=== PATIENT | female | born 1960 | race Caucasian/White ===

== ENCOUNTER 2019-07-23 10:15 | Outpatient (RCR) | payer MEDICAID, OTHER, SELFPAY ==
--- NOTE | 2019-07-30 10:32 | PTOPEVAL ---
Thank you for referring Josephine Dee to [facility]. Please review, sign, date and return this plan of care JOAN. I agree with and certify that the following plan of care is medically necessary. Referring Physician Date Admitting Provider: Attending Provider: PHYSICIAN NOT ON STAFF Referring Provider: *PT Outpatient Evaluation Start: 07/23/19 16:34 Freq: Status: Active Protocol: Document 07/23/19 16:30 [facility] (Rec: 07/23/19 16:52 [facility] [id number]) Therapy Assessment Status Assessment Status Assessment Status Evaluation Outpatient Past Medical History Past Medical History Other Source of Past Medical History see patient intake form Cardiovascular History Hx Hypertension Yes Musculoskeletal History Hx Other Musculoskeletal Disorders Yes: right foot surgery Reproductive History Hx Post Menopausal Yes Hx Tubal Ligation Yes Hx Other Reproductive Disorders Yes: right breast lumpectomy Evaluation Information Problem Diagnosis L knee post-op TKA Onset 07/07/19 Subjective Information patient reports she had a L Query Text:As Reported By Patient/ TKA on 07/07/19. she reports Family this surgery was done by Dr. Leigh. she reports she is having pain sometimes at night still. she reports she is not working currently. she reports she has limited her pain med use. she reports she does not have insurance coverage at this time, but is working to resolve this. Prior Level of Function Comments Additional Prior Level of Function prior to operation, she Comments reports she was able to walk and ambulate stairs. she reports she was having pain and symptoms in the knee with turning. she reports she was not using any ad prior to surgery. she reports she would limp ocassionally. she reports no ad any more. Pain Assessment Timing of Pain Assessment Timing of Pain Assessment Assessment Pain Scale Pain Scale Used Numeric (1 - 10) Self Report Pain Assessment Left Knee(s) Reported Pain Level 0 Pain Description Aching,Dull Pain Frequency Acute,Intermittent Lowest Pain Intensity 0 Greatest Pain Intensity 4 Pain Aggravating Factors Stair Climbing,Walking,Weight
== END 2019-09-01 08:09 | disposition home or self-care (01) ==
LOC: CHSPT 10:15
DX: Z96.652 Presence of left artificial knee joint (principal)
CPT/HCPCS: 97016; 97110; 97161; 97530

== ENCOUNTER 2020-03-21 12:31 | Outpatient (CLI) | payer OTHER, SELFPAY ==
--- NOTE | ~2020-03-21 | XR_ITS ---
XR shoulder RT min 2V 03/21/2020 12:54 Indication: Right shoulder pain Procedure: 4 views right shoulder Comparison: No prior studies for comparison. Findings: There are mild degenerative changes of the right shoulder. No fracture or traumatic malalig nment. Visualized lung parenchyma is unremarkable. No significant soft tissue abnormality. No radiopa que foreign bodies. Impression: 1: Mild polyarticular osteoarthritis of the right shoulder. Reviewed, dictated and finalized at location B. 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
== END 2020-03-21 12:32 | disposition home or self-care (01) ==
LOC: CHSIMG 12:34
PROVIDERS: PCP Physician Assistant; Visit Provider Physician Assistant
DX: M25.511 Pain in right shoulder (principal)
CPT/HCPCS: 73030

== ENCOUNTER 2020-03-24 08:58 | Outpatient (RCR) | payer OTHER, SELFPAY ==
--- NOTE | 2020-03-24 10:11 | PTOPEVAL ---
Thank you for referring Josephine Dee to [facility].? The patient is scheduled to be seen for therapy? ____x/week for ___ weeks. Please review, sign, date and return this plan of care JOAN. I agree with and certify that the following plan of care is medically necessary. Referring Physician Date Admitting Provider: Attending Provider: Kervin Neely, PA Referring Provider: *PT Outpatient Evaluation Start: 03/24/20 09:00 Freq: Status: Active Protocol: Document 03/24/20 09:05 [facility] (Rec: 03/24/20 10:02 [facility] [id number]) Therapy Assessment Status Assessment Status Assessment Status Evaluation Outpatient Past Medical History Cardiovascular History Hx Hypertension Yes Musculoskeletal History Hx Other Musculoskeletal Disorders Yes: right foot surgery Reproductive History Hx Post Menopausal Yes Hx Tubal Ligation Yes Hx Other Reproductive Disorders Yes: right breast lumpectomy Evaluation Information Problem Diagnosis R shoulder pain Onset 03/21/20 Additional Evaluation Detail quick dash = 54% Subjective Information patient reports she has been Query Text:As Reported By Patient/ having pain in the R shoulder Family for several months. she reports no injury. she reports the pain started solely in the R shoulder and has gradually started moving down into her arm and the UT. she reports she has been off work since 02/24/20. she reports pain in the R shoulder that shoots down the arm when she is reaching for objects out away from her body. she reports lifting and carrying objects also increase pain. she reports her 10lb graddaughter is too heavy at times. 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 Prior Level of Function Comments Additional Prior Level of Function prior to summer time, no Comments issues with her shoulder. she reports she was off work until september of this year and then went back and began having pain increased when she went back to work. Pain Assessment Timing of Pain Assessment Timing of Pain Assessment Assessment Pain Scale Pain Scale Used Numeric (1 - 10) Self Report Pain A
--- NOTE | 2020-07-12 07:19 | PCPTNOTE ---
07/12/20 - patient account DC. patient has returned as a new patient under a new order with an updated account. all progress towards goals from this account will be taken from her most recent evaluation/note. NANCY
== END 2020-05-03 18:00 | disposition home or self-care (01) ==
LOC: CHSPT 08:58
PROVIDERS: PCP Physician Assistant; Visit Provider Physician Assistant
DX: M25.511 Pain in right shoulder (principal)
CPT/HCPCS: 97014; 97110; 97161; G0283

== ENCOUNTER 2020-05-31 15:40 | Outpatient (CLI) | payer OTHER, SELFPAY ==
--- NOTE | ~2020-05-31 | MM_ITS ---
EXAMINATION: MM screening pam BI w tomeka HISTORY: Screening mammogram TECHNIQUE: Craniocaudal and mediolateral oblique 3-D tomosynthesis images were obtained and synthetic 2-D images were generated. CAD analysis was submitted and interpreted. COMPARISON: 05/16/2019, 04/19/2018, 03/23/2017 bilateral digital screening mammogram examinations BREAST PARENCHYMAL COMPOSITION: The breasts are almost entirely fatty. FINDINGS: There is no evidence of suspicious mass, calcification, or architectural distortion to sugg est malignancy in either breast. There has been no suspicious interval change. IMPRESSION: 1. No mammographic evidence of malignancy. 2. Recommend routine screening mammography in one year. BI-RADS Category 1: Negative Reviewed, dictated and finalized at location A. 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
== END 2020-05-31 15:41 | disposition home or self-care (01) ==
LOC: ANHIMG 15:42
PROVIDERS: Family Provider Family Medicine; PCP Physician Assistant; Visit Provider Obstetrics & Gynecology
DX: Z12.31 Encounter for screening mammogram for malignant neoplasm of breast (principal)
CPT/HCPCS: 77063; 77067

== ENCOUNTER 2020-06-23 10:53 | Outpatient (RCR) | payer OTHER, SELFPAY ==
--- NOTE | 2020-06-23 12:38 | PTOPEVAL ---
Thank you for referring Josephine Dee to [facility].? The patient is scheduled to be seen for therapy? ___2_x/week for 10 visits. Please review, sign, date and return this plan of care JOAN. I agree with and certify that the following plan of care is medically necessary. Referring Physician Date Admitting Provider: Attending Provider: SEBASTIÁN ISAAC Referring Provider: *PT Outpatient Evaluation Start: 06/23/20 11:10 Freq: Status: Active Protocol: Document 06/23/20 11:10 [facility] (Rec: 06/23/20 12:37 [facility] [email or web address]) Therapy Assessment Status Assessment Status Assessment Status Evaluation Outpatient Past Medical History Cardiovascular History Hx Hypertension Yes Musculoskeletal History Hx Other Musculoskeletal Disorders Yes: right foot surgery Reproductive History Hx Post Menopausal Yes Hx Tubal Ligation Yes Hx Other Reproductive Disorders Yes: right breast lumpectomy Evaluation Information Problem Diagnosis right AC resection/anterior acromioplasty Onset 06/21/20 Subjective Information Pt. reports she underwent Query Text:As Reported By Patient/ surgery 2 days ago. She is Family currently in a sling. Pt. reports that she is having pain with movement. 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 She states that her goal is to regain normal shoulder movement. 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 reports she is currently Comments requiring assist from her with dressing and grooming. Pain Assessment Timing of Pain Assessment Timing of Pain Assessment Pre-Treatment Pain Scale Pain Scale Used Numeric (1 - 10) Self Report Pain Assessment Right Shoulder(s) Reported Pain Level 9 Pain Description Aching Pain Score Pain Score 9: Self Report Interventions Used Interventions Used By Clinicians Exercise,Ice Upper Extremity
== END 2020-07-20 18:10 | disposition home or self-care (01) ==
LOC: CHSPT 10:53
DX: M75.41 Impingement syndrome of right shoulder (principal)
CPT/HCPCS: 97014; 97110; 97161; G0283

== ENCOUNTER 2021-06-13 11:44 | Outpatient (CLI) | payer OTHER, SELFPAY ==
--- NOTE | ~2021-06-13 | MMUS_ITS ---
EXAMINATION: MM diagnostic pam BI w tomeka, US axilla RT HISTORY: Axillary tail breast lump on right TECHNIQUE: ML, MLO and CC 3-D tomosynthesis images of both breasts were performed and synthetic 2-D i mages were generated. CAD analysis was submitted and interpreted. High resolution targeted right axil miguel breast ultrasound was performed. COMPARISON: May 31, 2020, May 16, 2019, April 19, 2018 bilateral screening mammogram exami nations BREAST PARENCHYMAL COMPOSITION: The breasts are almost entirely fatty. FINDINGS: MAMMOGRAPHIC FINDINGS: No suspicious mass or architectural distortion, malignant calcification, skin thickening or retractio n or significant new or developing density is detected. ULTRASOUND: No suspicious mass or shadowing is detected in the area of clinical complaint in the right axillary a carrie. IMPRESSION: 1. No mammographic evidence of malignancy 2. Routine annual mammographic screening is recommended BI-RADS Category 1: Negative Reviewed, dictated and finalized at location A. 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 No mammographic evidence of malignancy 2. Routine annual mammographic screening is recommended BI-RADS Category 1: Negative
== END 2021-06-13 11:45 | disposition home or self-care (01) ==
LOC: ANHIMG 11:45
PROVIDERS: Visit Provider Physician Assistant
DX: N63.31 Unspecified lump in axillary tail of the right breast (principal)
CPT/HCPCS: 76882; 77062; 77066; G0279

== ENCOUNTER 2021-11-08 09:45 | Outpatient (CLI) | payer OTHER, SELFPAY ==
--- NOTE | ~2021-11-08 | DEXA_ITS ---
Bone Density Report Name: ALEJANDRO MURRY Age: 61 Sex: Female Ethnicity: White Date of : 1960 Indication: monitoring treatment; height loss; postmenopausal Referring Provider: HARRY GONZALEZ Study: Bone densitometry was performed. Exam Date: November 08, 2021 Accession number: [id number] Bone Density: Region BMD T-score Z-score Classification AP Spine(L2, L3) 1.273 2.0 3.5 Normal Femoral Neck (Left) 0.799 -0.5 0.9 Normal Total Hip (Left) 1.046 0.9 1.9 Normal Femoral Neck (Right) 0.725 -1.1 0.2 Osteopenia Total Hip (Right) 1.077 1.1 2.1 Normal Total Hip Mean 1.062 1.0 2.0 Normal World Health Organization criteria for BMD impression classify patients as: Normal (T-score at or above -1.0), Osteopenia (T-score between -1.0 and -2.5), or Osteoporosis (T-score at or below -2.5). 10-year Fracture Risk: FRAX not reported because: Treated for osteoporosis Previous Exams: Region Exam Age BMD T-score BMD Change BMD Change Date g/cm2 vs Baseline vs Previous AP Spine (L2-L3) 11/08/2021 61 1.273 2.0 0.129 (11.3%)* 0.129 (11.3%)* 03/03/2016 55 1.144 0.8 Total Hip(Left) 11/08/2021 61 1.046 0.9 0.014 (1.3%) -0.010 (-0.9%) 04/19/2018 57 1.056 0.9 0.023 (2.3%) 0.023 (2.3%) 03/03/2016 55 1.032 0.7 Total Hip(Right) 11/08/2021 61 1.077 1.1 0.000 (0.0%) 0.032 (3.1%)* 04/19/2018 57 1.045 0.8 -0.032 (-3.0%) -0.032 (-3.0%) 03/03/2016 55 1.077 1.1 *Denotes significance at 95% confidence level, LSC for AP Spine = 0.022 g/cm2, LSC for Total Hip = 0.027 g/cm2 Clinical Information Provided by Patient: Is being treated for osteoporosis Has used the following medications: Vitamin D, Calcium Patient maximum height was 64 Menopause Age: 51 Drinks caffeinated beverages Onset of menses at age 10 Number of children 2 Impression: The patient has low bone mass, based on the Right Femoral Neck T-score. No significant bone loss was observed. Discussion: PATIENT UNDER TREATMENT WITH NO SIGNIFICANT BMD LOSS SINCE LAST EXAM. In an untreated patient, BMD typically declines with age. A lack of decline or gain is usually a sign that treatment is efficacious and fracture risk is reduced. It is important to ask patients whether they are taking their medications and to encourage continued and appropriate compliance with their osteoporosis therapies to reduce fracture risk. It is also important to review their risk factor
== END 2021-11-08 09:46 | disposition home or self-care (01) ==
LOC: ANHIMG 09:48
PROVIDERS: PCP Physician Assistant; Visit Provider Obstetrics & Gynecology
DX: Z78.0 Asymptomatic menopausal state (principal); M85.851 Other specified disorders of bone density and structure, right thigh
CPT/HCPCS: 77080

== ENCOUNTER 2022-11-24 07:35 | Outpatient (CLI) | payer OTHER, SELFPAY ==
--- NOTE | ~2022-11-24 | MM_ITS ---
EXAMINATION: MM screening pam BI w tomeka HISTORY: Screening mammogram, family history of breast cancer in her mother. TECHNIQUE: Craniocaudal and mediolateral oblique 3-D tomosynthesis images were obtained and synthetic 2-D images were generated. CAD analysis was submitted and interpreted. COMPARISON: 06/13/2021, 05/31/2020, 05/16/2019 BREAST PARENCHYMAL COMPOSITION: The breasts are almost entirely fatty. FINDINGS: No suspicious mass, calcification, or architectural distortion are identified in either darlin ast to suggest malignancy. There has been no suspicious interval change. IMPRESSION: 1. No mammographic evidence of malignancy. 2. Recommend routine screening mammography in one year. BI-RADS Category 1: Negative Reviewed, dictated and finalized at location A.
== END 2022-11-24 07:36 | disposition home or self-care (01) ==
LOC: ANHIMG 07:36
PROVIDERS: PCP Physician Assistant; Visit Provider Nurse Practitioner
DX: Z12.31 Encounter for screening mammogram for malignant neoplasm of breast (principal)
CPT/HCPCS: 77063; 77067